=== PATIENT | male | born 1975 | race Caucasian/White ===

== ENCOUNTER 2017-09-26 02:06 | Emergency (ER) | payer OTHER ==
[~2017-09-26] VITALS: Ht 182.9 cm; Wt 73.9 kg
[2017-09-26 02:13] VITALS: BP 119/71
== END 2017-09-26 02:30 ==
LOC: M.ERS 02:06
DX: S01.112A Laceration without foreign body of left eyelid and periocular area, initial encounter (principal); S01.312A Laceration without foreign body of left ear, initial encounter; Z88.5 Allergy status to narcotic agent; X58.XXXA Exposure to other specified factors, initial encounter; Y93.89 Activity, other specified; Y92.89 Other specified places as the place of occurrence of the external cause; Y99.8 Other external cause status